=== PATIENT | male | born 1960 | race Caucasian/White ===

== ENCOUNTER 2021-10-22 17:29 | Emergency (ER) | payer MEDICARE, MEDICAID, SELFPAY ==
--- NOTE | ~2021-10-22 | CT_ITS ---
EXAMINATION: CT ABDOMEN AND PELVIS WITHOUT CONTRAST CLINICAL INFORMATION: Left lower quadrant pain COMPARISON: CT abdomen pelvis 08/22/2010 TECHNIQUE: Multidetector volumetric imaging was performed from the superior aspect of the liver through the pubic symphysis. Sagittal and coronal reformatted images were obtained on the technologist's workstation. This CT examination was performed using dose optimization techniques as appropriate, variously including the following: *Automated exposure control *Adjustment of mA and/or kV according to patient size (this includes techniques or standardized protocols for targeted exams where dose is matched to indication/reason for exam; i.e. extremities or head) *Use of iterative reconstruction technique DLP: 635 mGy-cm FINDINGS: LUNG BASES: The visualized lung bases are unremarkable. LIVER, GALLBLADDER, AND BILIARY TREE: The liver is normal in size, shape, and attenuation. No focal hepatic lesion or biliary ductal dilatation is present. The gallbladder is unremarkable with no evidence of radiopaque gallstones, gallbladder wall thickening, or obvious pericholecystic inflammatory changes. PANCREAS: Unremarkable. SPLEEN: Unremarkable. ADRENAL GLANDS: A 1.3 cm right adrenal adenoma is present along with a 1.7 cm left adrenal adenoma. KIDNEYS AND URETERS: The kidneys are normal in size, shape, and attenuation. No hydronephrosis, hydroureter, or calculi seen. No perinephric stranding. BLADDER: Bladder diverticula are noted near the left UVJ with the largest measuring 2.0 x 1.1 x 2.1 cm.. No stones or hydronephrosis. Ureterovesical junction GASTROINTESTINAL TRACT: Moderately extensive colonic diverticula are present throughout the colon without convincing evidence of diverticulitis. The small and large bowel are unremarkable. The appendix is unremarkable. ABDOMINAL WALL: No significant hernia is appreciated. LYMPH NODES: Normal. VASCULAR: Calcific atherosclerotic changes are present in the aorta and iliac vessels without aneurysm. PELVIC VISCERA: There is mild BPH OSSEOUS STRUCTURES: Mild degenerative changes present spine most marked at T12-L3. CT/CT abdomen pelvis wo con IMPRESSION: A cause for the patient's left lower quadrant pain is not been found. Incidental note made of: Bilateral adrenal adenomas, left sided bladder diverticula. Colonic diverticulosis without diverticulitis, mild BPH and degenerative changes in the spine Fleischner guidelines were followed.
[2021-10-22 18:37] VITALS: BP 146/89; PULSE 106; RESP 18; TEMP 36.8; O2SAT 96; BMI 31.2
[2021-10-22 19:39] LABS: MANUAL DIFF FLAG NO
[2021-10-22 19:54] LABS: Anion Gap 17 (12-20); Blood Urea Nitrogen 10 mg/dL (9-16); Calcium 9.1 mg/dL (8.4-10.2); Carbon Dioxide 24 mmol/L (22-29); Chloride 103 mmol/L (96-108); Creatinine Clr Calc Pharmacy 102.3; Estimated Glomerular Filt Rate > 60; Glucose Random 80 mg/dL (60-115); Potassium 3.7 mmol/L (3.3-5.1); Sodium 140 mmol/L (135-145)
[2021-10-22 19:55] LABS: Basophils Percent Auto 0.4 % (0-2); Eosinophils Absolute Auto 0.3 X10*3/uL (0.0-0.4); Eosinophils Percent Auto 3.8 % (0-4); Hemoglobin 14.8 g/dl (14.0-18.0); Imm Gran Abs Auto 0.02 X10*3/uL (0.00-0.03); Imm Gran Pct Auto 0.2 % (0.0-0.4); Lymphocytes Percent Auto 11.9 % (20-40); Mean Corpuscular HGB Conc 33.6 g/dl (31.0-36.0); Mean Corpuscular Hemoglobin 30.4 pg (27.0-33.0); Mean Corpuscular Volume 90.3 fL (80.0-98.0); Mean Platelet Volume 9.7 fL (9.4-12.4); Monocytes Absolute Auto 0.8 X10*3/uL (0.1-1.2); Monocytes Percent Auto 9.4 % (2-11); Neutrophils Absolute Auto 6.1 x10*3/uL (2.0-8.3); Neutrophils Percent Auto 74.3 % (45-73); Platelet Count 231 X10*3/uL (160-400); Red Blood Count 4.87 X10*6/uL (4.60-5.80); Red Cell Distribution Width 12.3 % (11.0-16.0); White Blood Count 8.2 X10*3/uL (4.8-10.8)
[2021-10-22 21:35] VITALS: BP 144/94; PULSE 97; TEMP 37; O2SAT 95
--- NOTE | 2021-10-22 21:47 | ED_ITS ---
HPI - Abdominal Pain General Chief Complaint: Nausea/Vomiting/Diarrhea Stated Complaint: Diverticulitis Sent by [facility] Time Seen by Provider: 10/22/21 21:44 Source: patient Mode of arrival: ambulatory Limitations: no limitations History of Present Illness HPI narrative: 61-year-old male history of diverticulitis presents with 8 days of left lower quadrant abdominal pain and diarrhea. He also tells me that he intermittently has blood speck in his stool. Patient tells me this feels like his typical diverticulitis flares. He tells me he was advised to come into the emergency department for further evaluation by his PCP. He denies fevers, chills, chest pain, shortness of breath, nausea, vomiting. Patient denies family or personal history of colorectal cancer. Patient tells me that his last colonoscopy around 2 years ago was normal. MD elicited complaint: abdominal pain Pertinent past history: diverticulitis Onset (ago): day(s) (8) Pain Consistency: constant Location: LLQ Severity: severe Quality: cramping Radiation: none Migration to: no migration Exacerbating factors: nothing Relieving factors: nothing Related Data Allergies Allergy/AdvReac Type Severity Reaction Status Date / Time Penicillins [PENICILLINS] Allergy Severe HIVES Unverified 10/22/21 18:36 codeine [CODEINE] Allergy Intermediate HIVES Unverified 12/01/19 15:12 Review of Systems Review of Systems Constitutional : No Weight loss, No Fever, No Chills, No Fatigue, No Malaise ENT/Mouth : No sore throat, No Rhinorrhea Eyes: No Eye Pain, No Swelling, No Redness Cardiovascular : No Chest Pain, No SOB, No Dyspnea on Exertion, No Orthopnea, No Edema, No Palpitations Respiratory : No Cough, No Sputum, No Wheezing Gastrointestinal : No Nausea, No Vomiting, + Diarrhea, No Constipation, + abdominal Pain, No Hematochezia, No Melena Genitourinary : No Dysuria, No Urinary Frequency, No Hematuria, Musculoskeletal : No joint pain, No Myalgias, No Joint Swelling Skin : No Skin Lesions, No rash Neuro : No Weakness, No Numbness, No Dizziness, No Headache All other systems reviewed and are negative Yes all other systems are reviewed and are negative PMFSH Past Medical History Attestation statement: The following information was validated with the patient. Source: old records reviewed and nursing notes reviewed Social History Social History Advance Directives: No Advance Directives Information Provided: No Physical Exam ED Vital Signs: Vital Signs - 24 hr 10/22/21 18:37 10/22/21 21:35 10/22/21 23:45 Temperature 98.3 F 98.6 F Pulse Rate 106 H 97 91 Respiratory Rate 18 14 Blood Pressure 146/89 H 144/94 H 111/68 Pulse Oximetry 96 95 96 Oxygen Delivery Method Room Air Room Air Room Air 10/23/21 02:00 Temperature Pulse Rate 84 Respiratory Rate 14 Blood Pressure 118/78 Pulse Oximetry 97 Oxygen Delivery Method Room Air BMI result Body Mass Index 31.2 VSS Appearance: Alert.? Oriented X3.? No acute distress.? Head: Normocephalic, atraumatic, no step-offs or deformities Eyes: Pupils equal, round and reactive to light.? ENT: Pharynx normal.? Neck: Normal inspection.? Neck supple.? CVS: Normal heart rate and rhythm.? Pulses normal.? Respiratory: No respiratory distress.? Breath sounds normal.? Abdomen: Soft and + tenderness to LLQ.? Skin: Skin warm and dry.? Normal skin color.? Normal skin turgor.? Extremities: No lower extremity edema.? No calf ttp. 5/5 strength to bilateral upper and lower extremities Neuro: Oriented X 3.? No motor deficit.? No sensory deficit. CN 2-12 intact Course Reevaluation(s) Reevaluation #1: Patient's CBC within normal limits. Chemistry with no acute electrolyte abnormalities. CT of the abdomen and pelvis unable to identify cause for patient's left lower quadrant pain. There are bilateral adrenal adenoma as and left-sided bladder diverticula. Colonic diverticulosis without diverticulitis is noted, mild BPH and degenerative changes in the spine, discuss these results with patient. Answered all questions. Will give Toradol, fluids. Symptoms likely secondary post viral from COVID infection. Patient denies antibiotic use tells me however that he recently took Paxlovid. Greg Villalba . Urine pending Time: 01:33 Reevaluation #2: Urine clean. and Maalox given. At this time pending re-evaluation and improvement as well as p.o. challenge. Sign out to . Time: 02:23 MDM - Abdominal Pain MDM Narrative Medical decision making narrative: [id number] 61-year-old male presents with left lower quadrant abdominal pain and diarrhea x8 days, feels like his typical episode of diverticulitis. Physical examination significant for left lower quadrant tenderness. Likely diverticulitis, unlikely that this is appendicitis, pancreatitis, cholec ystitis or acute abdomen. No signs of small-bowel obstruction. Plan at this time is to obtain a CT of the abdomen and pelvis, urine and basic labs Medical Records Attestation: I reviewed the patient's medical records. Lab Data Attestation: I reviewed the patient's lab results. Result diagrams: 10/22/21 19:26 10/22/21 19: Labs: Lab Results 10/22/21 10/22/21 10/23/21 Range/Units 19:26 19:26 01:26 WBC 8.2 (4.8-10.8) X10*3/uL RBC 4.87 (4.60-5.80) X10*6/uL Hgb 14.8 (14.0-18.0) g/dl Hct 44.0 (42.0-52.0) % MCV 90.3 (80.0-98.0) fL MCH 30.4 (27.0-33.0) pg MCHC 33.6 (31.0-36.0) g/dl RDW 12.3 (11.0-16.0) % Plt Count 231 (160-400) X10*3/uL MPV 9.7 (9.4-12.4) fL Immature Gran % (Auto) 0.2 (0.0-0.4) % Neut % (Auto) 74.3 H (45-73) % Lymph % (Auto) 11.9 L (20-40) % [place] % (Auto) 9.4 (2-11) % Eos % (Auto) 3.8 (0-4) % Baso % (Auto) 0.4 (0-2) % Lymph # (Auto) 1.0 L (1.2-4.9) X10*3/uL [place] # (Auto) 0.8 (0.1-1.2) X10*3/uL Eos # (Auto) 0.3 (0.0-0.4) X10*3/uL Baso # (Auto) 0.0 (0.0-0.2) X10*3/uL Abs Immat Gran (auto) 0.02 (0.00-0.03) X10*3/uL Absolute Neuts (auto) 6.1 (2.0-8.3) x10*3/uL Absolute Nucleated RBC 0.000 (0.0-0.012) X10*3/uL Nucleated RBC % (auto) 0.0 (0.0-0.2) /100WBC Sodium 140 (135-145) mmol/L Potassium 3.7 (3.3-5.1) mmol/L Chloride 103 (96-108) mmol/L Carbon Dioxide 24 (22-29) mmol/L Anion Gap 17 (12-20) BUN 10 (9-16) mg/dL Creatinine 0.95 (0.5-1.4) mg/dL Estim Creat Clear Calc 102.3 Estimated GFR > 60 Random Glucose 80 (60-115) mg/dL Calcium 9.1 (8.4-10.2) mg/dL Urine Color YELLOW Urine Appearance CLEAR Urine pH 6.0 (5.0-8.0) Ur Specific [place] 1.015 (1.005-1.025) Urine Protein NEG (NEG-TRACE) MG/DL Urine Glucose (UA) NEG (NEG) MG/DL Urine Ketones >=80 (NEG) MG/DL Urine Blood NEG (NEG) Urine Nitrite NEG (NEG) Ur Leukocyte Esterase NEG (NEG) Critical Care Time Critical Care Time Critical Care Time: No Discharge Plan Discharge Clinical Impression: Abdominal pain, Nausea & vomiting, Adrenal adenoma Patient Disposition: Home, Self-Care Instructions: Acute Nausea and Vomiting (ED), Abdominal Pain (ED) Additional Instructions: Take your medications as prescribed. If you were prescribed antibiotics today, it is important that you take your medication to their entirety, do not skip any doses, do not finish them early. Follow-up with your primary care provider this week. Return to the emergency department with new or worsening symptoms. Such as fevers, chills, chest pain, shortness of breath, nausea, vomiting, dizziness, headache, vision changes, lethargy In case of emergency call 911 CT/CT abdomen pelvis wo con IMPRESSION: A cause for the patient's left lower quadrant pain is not been found. Incidental note made of: Bilateral adrenal adenomas, left sided bladder diverticula. Colonic diverticulosis without diverticulitis, mild BPH and degenerative changes in the spine? ? Fleischner guidelines were followed. Referrals: Helder Dorado MD [Primary Care Provider] - 2 days Deborah Tracy MD [Physician] - 1 week Stand Alone Forms: Work/School Release
[2021-10-22] MEDS: hydrOXYzine HCL 25 MG TABLET PO (22:02)
[2021-10-22 23:45] VITALS: BP 111/68; PULSE 91; RESP 14; O2SAT 96
[2021-10-23] MEDS: Ketorolac Tromethamine 15 MG/ML VIAL 30 MG IVPUSH (01:22)
[2021-10-23] MEDS: 0.9 % Sodium Chloride 1,000 ML 999 ML IV (01:23)
[2021-10-23 01:34] LABS: Appearance Urine CLEAR; Color Urine YELLOW; Glucose Urine UA NEG (NEG); Leukocyte Esterase Urine NEG (NEG); Nitrite Urine NEG (NEG); Specific Gravity - Urine 1.015 (1.005-1.025); Urine Blood NEG (NEG); Urine Ketones >=80 MG/DL (NEG); Urine Protein NEG (NEG-TRACE)
[2021-10-23 02:00] VITALS: BP 118/78; PULSE 84; RESP 14; O2SAT 97
[2021-10-23] MEDS: PHENobarb/Hyoscy/Atropine/Scop 10 ML ELIXIR PO (02:05)
[2021-10-23] MEDS: Magnesium Hydrox/Alum Hydrox 30 ML ORAL.SUSP PO (02:05)
== END 2021-10-23 03:48 | disposition home or self-care (01) ==
PROVIDERS: Physician Assistant; Emergency Provider Emergency Medicine; PCP Internal Medicine
DX: R10.32 Left lower quadrant pain (principal); R11.2 Nausea with vomiting, unspecified; D35.02 Benign neoplasm of left adrenal gland; D35.01 Benign neoplasm of right adrenal gland
CPT/HCPCS: 36415; 74176; 80048; 81003; 85025; 96361; 96374; 99284; 99285; J1885